=== PATIENT | female | born 1945 | race Caucasian/White ===

== ENCOUNTER → 2019-03-03 12:56 | Outpatient (CLI) | payer MEDICARE, OTHER, SELFPAY | PROVIDERS: Family Provider Family Medicine; PCP Family Medicine; Visit Provider Physician Assistant | DX: R30.0 Dysuria (principal); R31.9 Hematuria, unspecified | CPT/HCPCS: 87077; 87086; 87186 ==

== ENCOUNTER → 2021-07-24 08:29 | Outpatient (CLI) | payer MEDICARE, OTHER, SELFPAY ==
--- NOTE | 2021-07-24 | DI.US.S_ITS ---
LIMITED ULTRASOUND OF LEFT BREAST: 07/24/2021 CLINICAL: Patient returns today to evaluate an asymmetry in the left breast. Comparison is made to exams dated: 07/24/2021 mammogram - [facility], 05/28/2021 mammogram, 04/12/2018 mammogram, and 04/04/2014 mammogram - [facility]. Color flow and real-time ultrasound of the left breast 10-2 o'clock region were performed. There is wider than tall irregular mass with an indistinct margin in the left breast at 1 o'clock middle depth. This irregular mass is hypoechoic with no posterior acoustic shadowing or enhancement. Color flow imaging demonstrates that there is no vascularity present. No significant abnormalities were seen sonographically in the left breast. IMPRESSION: PROBABLY BENIGN Probably benign hypoechoic mass in the left breast 1:00 approximately 5 cm from the nipple. This most likely represents an area of dense fibroglandular tissue or a complicated cyst. Follow-up mammogram and US in 6 months recommended. This exam was interpreted at Station ID: [id number]. Electronically Signed By: Ramiro Espinoza M.D. jr/:07/26/2021 11:08:52 letter sent: Followup Recommended Ultrasound BI-RADS: 3 Probably benign
--- NOTE | 2021-07-24 | DI.MG.S_ITS ---
UNILATERAL LEFT DIGITAL DIAGNOSTIC MAMMOGRAM 3D/2D WITH ADDITIONAL VIEWS: 07/24/2021 CLINICAL: Additional evaluation requested from prior study. Comparison is made to exams dated: 05/28/2021 mammogram, 04/12/2018 mammogram, and 04/04/2014 mammogram - [facility]. There are scattered fibroglandular elements in left breast. There is an oval equal density asymmetry with an indistinct and circumscribed margin in the left breast middle depth superior region seen on the mediolateral oblique view only. This is less prominent. No other significant masses or calcifications are seen in the breast. IMPRESSION: INCOMPLETE: NEEDS ADDITIONAL IMAGING EVALUATION The oval equal density asymmetry in the left breast most likely is fibroglandular tissue and is indeterminate. An ultrasound is recommended. This exam was interpreted at Station ID: [id number]. NOTE: For mammograms, a report in lay terms will be sent to the patient. Approximately 15% of breast malignancies will not be visualized mammographically. In the management of a palpable breast mass, a negative mammogram must not discourage biopsy of a clinically suspicious lesion. Electronically Signed By: Ramiro Espinoza M.D., jr/agueda:07/24/2021 09:12:12 ACR BI-RADS Category 0: Incomplete [id number]
== END ==
PROVIDERS: Family Provider Family Medicine; PCP Internal Medicine; Referring Provider Internal Medicine; Visit Provider Internal Medicine
DX: R92.8 Other abnormal and inconclusive findings on diagnostic imaging of breast (principal); N63.21 Unspecified lump in the left breast, upper outer quadrant
CPT/HCPCS: 76642; 77065; G0279

== ENCOUNTER → 2025-01-19 12:38 | Outpatient (CLI) | payer MEDICARE, OTHER, SELFPAY | LOC: PHYS 12:39 | PROVIDERS: Referring Provider Orthopaedic Surgery; Visit Provider Orthopaedic Surgery | DX: G56.02 Carpal tunnel syndrome, left upper limb (principal) | CPT/HCPCS: 95886; 95909 ==